=== PATIENT | female | born 1965 | race Caucasian/White ===

== ENCOUNTER 2016-07-22 14:20 | Emergency (ER) | payer OTHER ==
[~2016-07-22] VITALS: Ht 160 cm; Wt 76.9 kg
[~2016-07-22 14:20] MED LIST: CINNAMON500 MG PO; LEVOTHYROXINE25 MCG PO; MIRENA52 MG IY; PRAVASTATIN SOD40 MG PO; SERTRALINE HCL100 MG PO; SKELAXIN800 MG PO; TOPAMAX50 MG PO; TYLENOL EXTRA500 MG PO; VALACYCLOVIR500 MG PO; ZANAFLEX4 M1 PO; ZOMIG5 MG PO
[2016-07-22 15:12] LABS: HEMATOCRIT 44.2 % (36.0-46.0); MCH 31.2 PG (29.0-34.0); MCHC 34.2 G/DL (30.0-36.0); MCV 91.3 FL (83-99); MEAN PLAT.VOLUME 9.5 uM^3 (9.5-12.4); PLATELET COUNT 247 K/uL (156-360); RBC DIS.WIDTH-CV 12.7 % (11.8-14.6); RBC DIS.WIDTH-SD 42.5 % (39-53); RED BLOOD COUNT 4.84 M/uL (3.80-5.20); WHITE BLOOD COUNT 17.2 K/uL (4.1-10.2)
[2016-07-22 15:19] LABS: ADD MIUA? NO; BILIRUBIN NEGATIVE; BLOOD NEGATIVE; COLOR YELLOW ((YELLOW)); GLUCOSE (STRIP) NEGATIVE; KETONES NEGATIVE; LEUKOCYTES NEGATIVE; NITRITE NEGATIVE; PROTEIN (STRIP) NEGATIVE; SPECIFIC GRAVITY 1.016 (1.000-1.030); UROBILINOGEN 0.2 MG/DL (0.2-1.0)
[2016-07-22 15:33] LABS: ANION GAP 9 MEQ/L (2-14); CHLORIDE 107 MEQ/L (99-109); POTASSIUM 3.7 MEQ/L (3.7-5.4); SAMPLE HEMOLYSIS CHECK 0; SAMPLE ICTERIC CHECK 0; SAMPLE LIPEMIA CHECK 0; SODIUM 138 MEQ/L (136-147); TOTAL BILIRUBIN 0.8 MG/DL (0.0-1.0)
[2016-07-22 15:39] LABS: ALKALINE PHOSPHATASE 45 IU/L (3-129); GFR ESTIMATE (CALCULATED) > 59 mL/min/; GLUCOSE 109 mg/dL (70-99); LIPASE 20 U/L (1.0-51.0); UREA NITROGEN (BUN) 10 mg/dL (9-23)
[2016-07-22] MEDS ORDERED: CIPRO500 MG PO (17:44)
[2016-07-22] MEDS ORDERED: FLAGYL500 MG PO (17:44)
[2016-07-22 18:34] VITALS: BP 96/61
== END 2016-07-22 18:50 | disposition home or self-care (01) ==
LOC: EME 14:20
PROVIDERS: Nurse Practitioner Family
DX: K52.9 Noninfective gastroenteritis and colitis, unspecified (principal)
CPT/HCPCS: 74177; 80053; 81003; 83690; 85027; 99281; 99284; J1885; J2550; J7030; Q0169

== ENCOUNTER 2016-09-07 05:05 | Inpatient (IN) | payer OTHER ==
[~2016-09-07] VITALS: Ht 160 cm; Wt 73.1 kg
[~2016-09-07 05:05] MED LIST changes: +CIPRO500 MG PO; +FLAGYL500 MG PO
[2016-09-07 06:27] LABS: EOSINOPHIL (%) 0.6 % (0-5); EOSINOPHIL COUNT 0.1 K/uL (0-0.3); HEMATOCRIT 45.2 % (36.0-46.0); IMMATURE GRANULOCYTE (%) 0.3 % (0.0-0.7); INSTRUMENT ABS NEUTROPHIL CT 10.3 K/uL; LYMPHOCYTE COUNT 1.4 K/uL (1.0-2.8); MCH 31.2 PG (29.0-34.0); MCHC 34.5 G/DL (30.0-36.0); MCV 90.4 FL (83-99); MEAN PLAT.VOLUME 9.8 uM^3 (9.5-12.4); MONOCYTE (%) 4.8 % (3-12); MONOCYTE COUNT 0.6 K/uL (0-0.8); NEUTROPHIL (%) 83.2 % (45-76); NEUTROPHIL COUNT 10.3 K/uL (1.8-6.4); PLATELET COUNT 229 K/uL (156-360); RBC DIS.WIDTH-CV 12.4 % (11.8-14.6); RBC DIS.WIDTH-SD 41.1 % (39-53); WHITE BLOOD COUNT 12.4 K/uL (4.1-10.2)
[2016-09-07 06:36] LABS: CHLORIDE 108 mEq/L (99-109); POTASSIUM 3.9 mEq/L (3.7-5.4); SODIUM 138 mEq/L (136-147)
[2016-09-07 06:38] LABS: GLUCOSE 107 mg/dL (70-99)
[2016-09-07 06:39] LABS: ANION GAP 10 MEQ/L (2-14)
[2016-09-07 06:40] LABS: TOTAL BILIRUBIN 0.7 mg/dL (0.0-1.0)
[2016-09-07 06:41] LABS: ALKALINE PHOSPHATASE 49 IU/L (3-129)
[2016-09-07 06:42] LABS: GFR ESTIMATE (CALCULATED) > 59 mL/min/
[2016-09-07 06:43] LABS: UREA NITROGEN (BUN) 11 mg/dL (9-23)
[2016-09-07 06:45] LABS: LIPASE 37 U/L (1.0-51.0)
[2016-09-07 08:02] LABS: C DIFF TOXIN POSITIVE (NEGATIVE)
[2016-09-07 08:03] LABS: PROBE CHECK PASS
[2016-09-07 08:26] LABS: ADD MIUA? YES; BILIRUBIN NEGATIVE; BLOOD SMALL; COLOR YELLOW ((YELLOW)); GLUCOSE (STRIP) NEGATIVE; KETONES NEGATIVE; LEUKOCYTES NEGATIVE; NITRITE NEGATIVE; PROTEIN (STRIP) 30; UROBILINOGEN 0.2 MG/DL (0.2-1.0)
[2016-09-07 08:32] LABS: BACTERIA NONE SEEN /HPF; EPITHELIAL CELLS RARE /HPF; MUCUS TRACE /LPF; RED BLOOD CELLS 0-5 /HPF (0-5); UCUL ADDED? NO; WHITE BLOOD CELLS 0-5 /HPF (0-5)
[2016-09-07 08:55] LABS: SPECIFIC GRAVITY 1.088 (1.000-1.030)
[2016-09-07] MEDS ORDERED: BENTYL10 MG PO (11:52)
[2016-09-07] MEDS ORDERED: PRAVACHOL40 MG PO (11:52)
[2016-09-07] MEDS ORDERED: ERRIN0.35 MG PO (11:53)
[2016-09-07] MEDS ORDERED: ZOFRAN4 MG PO (11:53)
[2016-09-07] MEDS ORDERED: COMPAZINE5 MG PO (11:54)
[2016-09-07] MEDS ORDERED: OMEPRAZOLE40 M1 PO (11:55)
[2016-09-07] MEDS ORDERED: TEMOVATE 0.05%30 GM TP (11:55)
[2016-09-07] MEDS ORDERED: TUMS500 MG PO (11:56)
[2016-09-07] MEDS ORDERED: COLACE100 MG PO (11:57)
[2016-09-07] MEDS ORDERED: FIBER THERAPY0.52 GM PO (11:57)
[2016-09-07 12:58] VITALS: BP 112/53
[2016-09-07 15:40] VITALS: BP 125/81
[2016-09-07 16:44] LABS: HEMATOCRIT 40.3 % (36.0-46.0); MCH 31.1 PG (29.0-34.0); MCHC 34.5 G/DL (30.0-36.0); MCV 90.2 FL (83-99); MEAN PLAT.VOLUME 9.7 uM^3 (9.5-12.4); PLATELET COUNT 199 K/uL (156-360); RBC DIS.WIDTH-CV 12.3 % (11.8-14.6); RBC DIS.WIDTH-SD 40.7 % (39-53); RED BLOOD COUNT 4.47 M/uL (3.80-5.20); WHITE BLOOD COUNT 12.1 K/uL (4.1-10.2)
[2016-09-07 23:01] VITALS: BP 111/57
[2016-09-08 02:23] VITALS: BP 106/56
[2016-09-08 07:26] LABS: HEMATOCRIT 39.3 % (36.0-46.0); MCH 31.9 PG (29.0-34.0); MCHC 34.9 G/DL (30.0-36.0); MCV 91.6 FL (83-99); MEAN PLAT.VOLUME 10.1 uM^3 (9.5-12.4); PLATELET COUNT 197 K/uL (156-360); RBC DIS.WIDTH-CV 12.6 % (11.8-14.6); RBC DIS.WIDTH-SD 41.9 % (39-53); RED BLOOD COUNT 4.29 M/uL (3.80-5.20); WHITE BLOOD COUNT 10.1 K/uL (4.1-10.2)
[2016-09-08 07:52] LABS: ALKALINE PHOSPHATASE 43 IU/L (3-129); ANION GAP 8 MEQ/L (2-14); CHLORIDE 109 MEQ/L (99-109); GFR ESTIMATE (CALCULATED) > 59 mL/min/; GLUCOSE 82 mg/dL (70-99); POTASSIUM 3.5 MEQ/L (3.7-5.4); SAMPLE HEMOLYSIS CHECK 0; SAMPLE ICTERIC CHECK 0; SAMPLE LIPEMIA CHECK 0; SODIUM 138 MEQ/L (136-147); TOTAL BILIRUBIN 0.8 MG/DL (0.0-1.0); UREA NITROGEN (BUN) 6 mg/dL (9-23)
[2016-09-08 08:21] VITALS: BP 110/58
[2016-09-08 14:26] VITALS: BP 122/56
[2016-09-08 22:41] VITALS: BP 116/62
[2016-09-09 09:13] VITALS: BP 96/48
[2016-09-09 16:00] VITALS: BP 96/49
[2016-09-09 23:49] VITALS: BP 85/53
[2016-09-10 04:34] VITALS: BP 92/61
[2016-09-10 06:53] LABS: HEMATOCRIT 37.1 % (36.0-46.0); MCH 32.1 PG (29.0-34.0); MCHC 34.2 G/DL (30.0-36.0); MCV 93.7 FL (83-99); PLATELET COUNT 180 K/uL (156-360); RBC DIS.WIDTH-CV 12.6 % (11.8-14.6); RBC DIS.WIDTH-SD 43.2 % (39-53); RED BLOOD COUNT 3.96 M/uL (3.80-5.20); WHITE BLOOD COUNT 8.9 K/uL (4.1-10.2)
[2016-09-10 07:16] LABS: ALKALINE PHOSPHATASE 36 IU/L (3-129); ANION GAP 6 MEQ/L (2-14); CHLORIDE 110 MEQ/L (99-109); GFR ESTIMATE (CALCULATED) > 59 mL/min/; GLUCOSE 89 mg/dL (70-99); SAMPLE HEMOLYSIS CHECK 0; SAMPLE ICTERIC CHECK 0; SAMPLE LIPEMIA CHECK 0; SODIUM 138 MEQ/L (136-147); UREA NITROGEN (BUN) 4 mg/dL (9-23)
[2016-09-10 07:22] LABS: POTASSIUM 4.3 MEQ/L (3.7-5.4); TOTAL BILIRUBIN 0.6 MG/DL (0.0-1.0)
[2016-09-10 08:18] VITALS: BP 91/48
[2016-09-10 16:44] VITALS: BP 94/47
[2016-09-10 22:31] VITALS: BP 101/62
[2016-09-11 00:05] VITALS: BP 97/51
[2016-09-11 07:32] VITALS: BP 98/47
[2016-09-11 11:28] VITALS: BP 98/54
[2016-09-11] MEDS ORDERED: VANCOMYCIN HCL125 MG PO (13:05)
== END 2016-09-11 14:19 | disposition home or self-care (01) | DRG 372 ==
LOC: EME 05:05 → EDOF 10:00 → 5EAST 10:00
PROVIDERS: Emergency Medicine; Internal Medicine
DX: A04.7 Enterocolitis due to Clostridium difficile (principal); K55.9 Vascular disorder of intestine, unspecified; E78.5 Hyperlipidemia, unspecified; K21.9 Gastro-esophageal reflux disease without esophagitis; E03.9 Hypothyroidism, unspecified; R53.82 Chronic fatigue, unspecified; K58.9 Irritable bowel syndrome, unspecified; G43.909 Migraine, unspecified, not intractable, without status migrainosus; G25.81 Restless legs syndrome; F31.9 Bipolar disorder, unspecified; F41.9 Anxiety disorder, unspecified; M79.7 Fibromyalgia; Z87.19 Personal history of other diseases of the digestive system; Z87.11 Personal history of peptic ulcer disease; Z86.14 Personal history of Methicillin resistant Staphylococcus aureus infection; Z80.49 Family history of malignant neoplasm of other genital organs; Z82.49 Family history of ischemic heart disease and other diseases of the circulatory system; B00.9 Herpesviral infection, unspecified
CPT/HCPCS: 74177; 80053; 81003; 83605; 83690; 85025; 85027; 87491; 87493; 87591; 99281; 99285; C9113; J2270; J2405; J2765; J3480; J7030

== ENCOUNTER → 2016-09-27 | Outpatient (CLI) | payer OTHER ==
[~2016-09-27] VITALS: Ht 160 cm; Wt 71.3 kg
[~2016-09-27] MED LIST changes: +BENTYL10 MG PO; +COLACE100 MG PO; +COMPAZINE5 MG PO; +ERRIN0.35 MG PO; +FIBER THERAPY0.52 GM PO; +LO-DOSE ASPIRIN81 M1 PO; +OMEPRAZOLE40 M1 PO; +PRAVACHOL40 MG PO; +TEMOVATE 0.05%30 GM TP; +TUMS500 MG PO; +VANCOMYCIN HCL125 MG PO; +ZOFRAN4 MG PO
== END | disposition home or self-care (01) ==
LOC: AMB 12:53
DX: K29.70 Gastritis, unspecified, without bleeding (principal); K63.3 Ulcer of intestine; K64.8 Other hemorrhoids; K62.89 Other specified diseases of anus and rectum; F31.9 Bipolar disorder, unspecified; E78.5 Hyperlipidemia, unspecified; E03.9 Hypothyroidism, unspecified; Z85.828 Personal history of other malignant neoplasm of skin; Z79.82 Long term (current) use of aspirin; Z82.49 Family history of ischemic heart disease and other diseases of the circulatory system; Z80.49 Family history of malignant neoplasm of other genital organs
CPT/HCPCS: 88305; 88342 TC; J2250; J2405; J3010